=== PATIENT | male | born 1955 | race Caucasian/White ===

== ENCOUNTER 2019-04-24 23:53 | Inpatient (IN) | payer MEDICARE ==
[~2019-04-24] VITALS: Ht 180.3 cm; Wt 85.1 kg
[~2019-04-24 23:53] MED LIST: MECL25 PO
[2019-04-25 00:12] LABS: BASOPHILS ABSOLUTE AUTO 0.03 K/mm3 (0.00-0.23); BASOPHILS PERCENT AUTO 0 % (0-2); EOSINOPHILS ABSOLUTE AUTO 0.05 K/mm3 (0.00-0.68); EOSINOPHILS PERCENT AUTO 0 % (0-6); Hematocrit 46.8 % (37.0-53.0); IMMATURE GRAN ABSOLUTE AUTO 0.03 K/mm3 (0.00-0.10); IMMATURE GRAN PERCENT AUTO 0 % (0-1); LYMPHOCYTES ABSOLUTE AUTO 2.92 K/mm3 (0.84-5.20); LYMPHOCYTES PERCENT AUTO 22 % (21-46); MONOCYTES PERCENT AUTO 6 % (4-13); Mean Corpuscular HGB 27.5 pg (26.0-34.0); Mean Corpuscular HGB Conc 32.1 g/dL (31.5-36.5); Mean Corpuscular Volume 86 fL (80-100); Mean Platelet Volume 9.5 fL (9.1-12.4); NEUTROPHILS ABSOLUTE AUTO 9.24 K/mm3 (1.96-9.15); NEUTROPHILS PERCENT AUTO 71 % (41-73); Platelet Count 315 K/mm3 (150-400); RDW Coefficient Variation 14.2 % (11.7-14.2); RDW Standard Deviation 44.3 fL (35.1-46.3); Red Blood Cell Count 5.45 M/mm3 (4.30-5.90); White Blood Cell Count 13.07 K/mm3 (4.00-11.30)
[2019-04-25 00:19] LABS: PCO2 Arterial 43.2 mmHg (35-45); PO2 Arterial 70.3 mmHg (80-100); pH Blood Arterial 7.37 (7.35-7.45)
[2019-04-25 00:32] LABS: Alanine Aminotransfer (ALT/SGP 43 U/L (12-78); Albumin, Blood 3.8 g/dL (3.4-5.0); Alk Phos 103 U/L (50-136); Anion Gap 8 mmol/L (6-16); Aspartate Aminotrans (AST/SGOT 18 U/L (12-37); Bilirubin, Total 0.4 mg/dL (0.1-1.0); Blood Urea Nitrogen 26 mg/dL (8-24); Bun/Creatinine Ratio 22.4 (12.0-20.0); CO2, Blood 26 mmol/L (21-32); Calcium, Blood 8.9 mg/dL (8.5-10.1); Chloride, Blood 104 mmol/L (98-108); Creatinine, Blood 1.16 mg/dL (0.60-1.20); Ethanol (Alcohol), Blood, Med <3 mg/dL; Globulin, Blood 3.8 g/dL (2.2-4.0); Glomerular Filtration Rate >60 (60-); Glucose, Blood 277 mg/dL (70-99); Magnesium, Blood 2.2 mg/dL (1.6-2.4); Potassium, Blood 3.5 mmol/L (3.5-5.5); Sodium, Blood 138 mmol/L (136-145); Total Protein, Blood 7.6 g/dL (6.4-8.2); Troponin I <0.015 ng/mL (0.000-0.040)
[2019-04-25 03:00] LABS: International Normalized Ratio 1.03; Prothrombin Time Results 10.9 Sec (9.7-11.5)
[2019-04-25 03:34] LABS: Source, Urine Clean Catch
[2019-04-25 03:38] LABS: Bilirubin, Urine Neg (Neg); Blood, Urine Neg (Neg); Glucose Qualitative, Urine 3+ (Neg); Ketones, Urine Neg (Neg); Leukocyte Esterase, Urine 1+ (Neg); Nitrite, Urine Neg (Neg); Protein, Urine 2+ (Neg); Specific Gravity, Urine 1.025 (1.003-1.022); Urobilinogen, Urine NORM (Normal)
[2019-04-25 03:44] LABS: Appearance, Urine Clear (Clear); Color, Urine Amber (P-Yellow)
[2019-04-25 03:47] LABS: Bacteria Many /hpf; Hyaline Casts 50-100 /lpf (0-2); Mucus Light ({null, 0-Heavy}); Red Blood Cells, Urine 0-2 /hpf (0-2); Squamous Epithelial Cells Not Seen /hpf (Few)
[2019-04-25 03:55] LABS: U Amphetamine Screen DETECTED; U Barbituate Screen Not Detected; U Benzodiazapine Screen Not Detected; U Buprenorphine Screen Not Detected; U Cannabinoids Screen DETECTED; U Cocaine Screen Not Detected; U Methadone Screen Not Detected; U Methamphetamine Screen DETECTED; U Opiates Screen DETECTED; U Oxycodone Screen Not Detected; U Phencyclidine Screen Not Detected; U Propoxyphene Screen Not Detected
[2019-04-25 04:21] LABS: Hematocrit 47.8 % (37.0-53.0); Hemoglobin 15.2 g/dL (13.5-17.5); Mean Corpuscular HGB 27.7 pg (26.0-34.0); Mean Corpuscular HGB Conc 31.8 g/dL (31.5-36.5); Mean Corpuscular Volume 87 fL (80-100); Mean Platelet Volume 9.3 fL (9.1-12.4); Platelet Count 276 K/mm3 (150-400); RDW Coefficient Variation 14.1 % (11.7-14.2); RDW Standard Deviation 45.2 fL (35.1-46.3); Red Blood Cell Count 5.48 M/mm3 (4.30-5.90); White Blood Cell Count 12.16 K/mm3 (4.00-11.30)
[2019-04-25 04:39] LABS: Alanine Aminotransfer (ALT/SGP 39 U/L (12-78); Albumin, Blood 3.4 g/dL (3.4-5.0); Albumin/Globulin Ratio 0.9 (0.8-1.8); Alk Phos 96 U/L (50-136); Anion Gap 6 mmol/L (6-16); Aspartate Aminotrans (AST/SGOT 11 U/L (12-37); Bilirubin, Total 0.3 mg/dL (0.1-1.0); Blood Urea Nitrogen 22 mg/dL (8-24); Bun/Creatinine Ratio 24.3 (12.0-20.0); CO2, Blood 24 mmol/L (21-32); Calcium, Blood 8.2 mg/dL (8.5-10.1); Chloride, Blood 111 mmol/L (98-108); Creatinine, Blood 0.91 mg/dL (0.60-1.20); Globulin, Blood 3.6 g/dL (2.2-4.0); Glomerular Filtration Rate >60 (60-); Glucose, Blood 135 mg/dL (70-99); Potassium, Blood 3.7 mmol/L (3.5-5.5); Sodium, Blood 141 mmol/L (136-145)
--- NOTE | 2019-04-25 10:50 | NUR ---
ARRIVAL NOTE: PT ARRIVED VIA GURNEY AND TRANSFERRED OVER TO BED WITH SLIGHTLY UNSTEADY GAIT AND SBA. PT IS ALERT AND ORIENTED X3. PLEASANT AND COOPERATIVE WITH CARE. SPEECH IS CLEAR AND ANSWERS QUESTIONS APPROPRIATELY. MOVES SELF AROUND IN BED. PT IS UNKEMPT AND PERSONAL HYGEIGN IS POOR. PT DENIES ANY CURRENT ILLICIT DRUG USE, NO SI. PT DENIES PAIN AT THIS TIME. CALL LIGHT WITHIN REACH. LUNGS ARE CLEAR T/O BILATERALLY. 02 SATS ON 6L VIA OXYMIZER AT THIS TIME. HR DISTANT, REGULAR, ST-100-110'S RANGE. NO EDEMA. IV IN THE RT NECK AND LT UA, BOTH PATENT WITH NS @ 125ML/HR FOR 1 LITER. UE/LE'S COOL TO THE TOUCH WITH SOME DISCOLORATION TO THE LE'S R/T TO POOR CIRCULATION. ABD SOFT/FLAT/NON-TENDER TO PALPATION. BT'S ACTIVE X4 QAUDS. NO VOID YET. HOWEVER, ER REPORTS PT USED THE URINAL.
--- NOTE | 2019-04-25 11:15 | NUR ---
CALLED DR HAMMER AND INFORMED HER THIS PT HAS ARRIVED TO UNIT. ASKED ABOUT STARTING A DIET PT IS VERY HUNGRY/THIRSTY. DR HAMMER IS GOING TO REVIEW THE PT'S CASE AND ENTER ORDERS. NICOTINE PATCH ORDERED AT PT REPORTS HE SMOKES 5-7 CIG/DAY.
[2019-04-25 18:33] LABS: Adenovirus Not Detected (NOT DETECT); Bordetella pertussis Not Detected (NOT DETECT); Chlamydophila pneumoniae Not Detected (NOT DETECT); Coronavirus 229E Not Detected (NOT DETECT); Coronavirus HKU1 Not Detected (NOT DETECT); Coronavirus NL63 Not Detected (NOT DETECT); Coronavirus OC43 Not Detected (NOT DETECT); Human Metapneumovirus Not Detected (NOT DETECT); Human Rhinovirus/Enterovirus Not Detected (NOT DETECT); Influenza A Not Detected (NOT DETECT); Influenza A/2009-H1 Not Detected (NOT DETECT); Influenza A/H1 Not Detected (NOT DETECT); Influenza A/H3 Not Detected (NOT DETECT); Influenza B Not Detected (NOT DETECT); Mycoplasma pneumoniae Not Detected (NOT DETECT); Parainfluenza Virus 1 Not Detected (NOT DETECT); Parainfluenza Virus 2 Not Detected (NOT DETECT); Parainfluenza Virus 3 Not Detected (NOT DETECT); Parainfluenza Virus 4 Not Detected (NOT DETECT); Respiratory Syncytial Virus Not Detected (NOT DETECT)
--- NOTE | 2019-04-25 19:08 | NUR ---
SHIFT SUMMARY: PT ARRIVED THIS AM AND HAS REMAINED STABLE T/O SHIFT. PT IS ALERT AND ORIENTED X3. PLEASANT AND COOPERATIVE WITH CARE. DENIES PAIN T/O SHIFT. SPEECH IS CLEAR AND ANSWERS QUESTIONS APPROPRIATELY. USES CALL LIGHT APPROPRIATELY FOR HIS CARE NEEDS. LUNGS ARE CLEAR T/O BILATERALLY. 02 SATS >90% ON RA. HR DISTANT REGULAR, ST-100-110'S RANGE. NO EDEMA. IV IN THE RT NECK AND LT UA, SL'D UE/LE'S COOL TO THE TOUCH. ABD SOFT/FLAT/NON-TENDER TO PALPATION. BT'S ACTIVE X4 QAUDS. PT TOLERATING REGULAR DIET WELL. VOIDING PER URINAL INDEPENDENTLY. NO BM THIS SHIFT. .
--- NOTE | 2019-04-25 19:41 | NUR ---
REPORTED OFF TO ALICIA CRANDALL WHOM IS ASSUMING CARE OF THIS PT.
--- NOTE | 2019-04-25 21:58 | NUR ---
ASSUME CARE: REPORT RECIEVED FROM ARYAN OFFGOING RN. MONITOR INTACT SHOWING SINUS TACH . HEART RATE 100'S-110'S. DENIES DISCOMFORT. LUNGS CLEAR RESPIRATIONS REGULAR AND EASY SPO2 92-97% ON ROOM AIR. ABDOMEN SOFT WITH BOWELL SOUNDS FOUR QUADS. VOIDS VERENICE URINE PER URINAL , OCC NON PRODUCTIVE LOOSE SOUNDING COUGH. SPUTUM SAMPLE CUP IN ROOM AND EXPLAINED NEED FOR SAMPLE TO PT UNDERSTANDING VERBALIZED. CONTINUE TO MONITOR AND REPORT CHANGE IN PATIENT CONDITION.
--- NOTE | 2019-04-26 00:19 | NUR ---
O2 O2 PLACED PER OZIMIZER AT 3L/MIN SECONDARY TO DECREASING SATURATIONS. WILL CONTINUE TO MONITOR SPUTUM COLLECTION CUP AT BEDSIDE
--- NOTE | 2019-04-26 06:28 | NUR ---
SHIFT SUMMARY: RESTS QUIETLY WHEN UNDISTURBED. MONITOR INTACT SHOWING SINUS TACH. HEART RATE 90'S-110'S LUNG SOUNDS CLEAR WITH DECREASED BASES.RESPIRATIONS REGULAR AND EASY WITH O2 IN PLACE AT 2L/MIN. ABDOMEN SOFT WITH BOWEL SOUNDS FOUR QUADS. VOIDS VERENICE URINE PER URINAL. OCC LOOSE MOIST SOUNDING COUGH WITH SNEEZING EPISODES. COOPERATIVE TO CARES. CONTINUE TO MONITOR AND REPORT CHANGE IN PATIENT CONDITION.
--- NOTE | 2019-04-26 07:33 | NUR ---
O2 REQUIREMENTS Pt titrated to room air. SpO2 93%.
[2019-04-26 08:46] LABS: Hematocrit 40.1 % (37.0-53.0); Hemoglobin 13.1 g/dL (13.5-17.5); Mean Corpuscular HGB Conc 32.7 g/dL (31.5-36.5); Mean Corpuscular Volume 86 fL (80-100); Mean Platelet Volume 9.6 fL (9.1-12.4); Platelet Count 246 K/mm3 (150-400); RDW Coefficient Variation 14.8 % (11.7-14.2); RDW Standard Deviation 46.4 fL (35.1-46.3); Red Blood Cell Count 4.68 M/mm3 (4.30-5.90); White Blood Cell Count 21.92 K/mm3 (4.00-11.30)
[2019-04-26 09:07] LABS: Albumin, Blood 3.2 g/dL (3.4-5.0); Anion Gap 6 mmol/L (6-16); Blood Urea Nitrogen 20 mg/dL (8-24); Bun/Creatinine Ratio 26.8 (12.0-20.0); CO2, Blood 27 mmol/L (21-32); Calcium, Blood 9.9 mg/dL (8.5-10.1); Chloride, Blood 106 mmol/L (98-108); Creatinine, Blood 0.75 mg/dL (0.60-1.20); Glomerular Filtration Rate >60 (60-); Glucose, Blood 128 mg/dL (70-99); Phosphorus, Blood 2.6 mg/dL (2.5-4.9); Potassium, Blood 4.4 mmol/L (3.5-5.5); Sodium, Blood 139 mmol/L (136-145)
--- NOTE | 2019-04-26 18:40 | NUR ---
Per admit trigger, I met with Mr. Fernandez to offer information/education about Advanced Directives. He was pleasantly dismissive and told me his "knows what to do." I will remain available.
--- NOTE | 2019-04-26 19:30 | NUR ---
SUMMARY Assumed care of pt at 0700. Report received from April VARGAS. Pt titrated to room air. Tolerated well. Flutter valve placed at bedside and pt educated on use. Pt demonstrated correct use. Dr Egan in to see patient. Okay for medical floor status. Pt removed from heart monitor and continuous SpO2. Independent in room. Plans for pt to dishcarge tomorrow. Pt assigned to room 305. Telephone report given to Ameena VARGAS who is to assume care.
[2019-04-27 05:37] LABS: BASOPHILS ABSOLUTE AUTO 0.03 K/mm3 (0.00-0.23); BASOPHILS PERCENT AUTO 0 % (0-2); EOSINOPHILS PERCENT AUTO 0 % (0-6); Hematocrit 39.1 % (37.0-53.0); Hemoglobin 12.6 g/dL (13.5-17.5); IMMATURE GRAN ABSOLUTE AUTO 0.14 K/mm3 (0.00-0.10); IMMATURE GRAN PERCENT AUTO 1 % (0-1); LYMPHOCYTES ABSOLUTE AUTO 1.81 K/mm3 (0.84-5.20); LYMPHOCYTES PERCENT AUTO 9 % (21-46); MONOCYTES ABSOLUTE AUTO 1.07 K/mm3 (0.16-1.47); MONOCYTES PERCENT AUTO 5 % (4-13); Mean Corpuscular HGB 27.5 pg (26.0-34.0); Mean Corpuscular HGB Conc 32.2 g/dL (31.5-36.5); Mean Corpuscular Volume 85 fL (80-100); NEUTROPHILS ABSOLUTE AUTO 17.29 K/mm3 (1.96-9.15); NEUTROPHILS PERCENT AUTO 85 % (41-73); Platelet Count 246 K/mm3 (150-400); RDW Standard Deviation 46.5 fL (35.1-46.3); Red Blood Cell Count 4.59 M/mm3 (4.30-5.90); White Blood Cell Count 20.34 K/mm3 (4.00-11.30)
[2019-04-27 06:08] LABS: Anion Gap 5 mmol/L (6-16); Blood Urea Nitrogen 22 mg/dL (8-24); Bun/Creatinine Ratio 25.9 (12.0-20.0); CO2, Blood 27 mmol/L (21-32); Calcium, Blood 9.4 mg/dL (8.5-10.1); Chloride, Blood 108 mmol/L (98-108); Creatinine, Blood 0.85 mg/dL (0.60-1.20); Glomerular Filtration Rate >60 (60-); Glucose, Blood 113 mg/dL (70-99); Phosphorus, Blood 2.2 mg/dL (2.5-4.9); Potassium, Blood 4.2 mmol/L (3.5-5.5); Sodium, Blood 140 mmol/L (136-145)
--- NOTE | 2019-04-27 06:41 | NUR ---
SHIFT SUMMARY PT IS A 64 Y/O MALE, TRANSFERED TO MEDICAL FROM THE ICU DURING THE NIGHT. HE WAS ORIGINALLY ADMITTED FOR A HEROIN OVERDOSE. PT IS A&O X 4, AND INDEPENDENT IN THE ROOM. HE DENIED ANY COMPLAINTS OF PAIN, NAUSEA OR SOB AND SLEPT OFF AND ON THROUGH THE NIGHT. PT'S HEART RATE WAS ELEVATED IN 100-110S, VITALS OTHERWISE STABLE. NO ACUTE CHANGES IN PT CONDITION NOTED DURING THE NIGHT. WILL CONTINUE TO MONITOR AND TREAT PER EMAR UNTIL HAND OFF TO DAY SHIFT.
--- NOTE | 2019-04-27 16:39 | NUR ---
SHIFT SUMMARY: PT IS A/O X 3 WITH NO C/O PAIN THIS SHIFT. HE SELF AMBULATES IN ROOM AND TO THE TOILET WITH NO ISSUES. PT EATS ALL OF HIS MEALS AND CBGS HAVE BEEN WNL THIS SHIFT. IV FLUIDS/ABO INFUSING INTO PERIPHERAL LINE IN RUE AFTER LINE IN LUE WAS LEAKING AND REMOVED. PT HAS PERSISTANT NON-PRODUCTIVE COUGH THAT HE ATTRIBUTES TO HIS SMOKING, PT HAS NOT BEEN OUT TO SMOKE THIS SHIFT AND HAS NICOTINE PATCH IN PLACE ORDERED. PT IS VERY PLEASANT AND COOPERATIVE WITH CARE AND CALLS WHEN NEEDED.
[2019-04-28 05:19] LABS: BASOPHILS ABSOLUTE AUTO 0.02 K/mm3 (0.00-0.23); BASOPHILS PERCENT AUTO 0 % (0-2); EOSINOPHILS ABSOLUTE AUTO 0.12 K/mm3 (0.00-0.68); EOSINOPHILS PERCENT AUTO 1 % (0-6); Hematocrit 43.1 % (37.0-53.0); IMMATURE GRAN ABSOLUTE AUTO 0.05 K/mm3 (0.00-0.10); IMMATURE GRAN PERCENT AUTO 0 % (0-1); LYMPHOCYTES ABSOLUTE AUTO 2.73 K/mm3 (0.84-5.20); LYMPHOCYTES PERCENT AUTO 23 % (21-46); MONOCYTES ABSOLUTE AUTO 0.97 K/mm3 (0.16-1.47); MONOCYTES PERCENT AUTO 8 % (4-13); Mean Corpuscular HGB 27.7 pg (26.0-34.0); Mean Corpuscular HGB Conc 32.5 g/dL (31.5-36.5); Mean Corpuscular Volume 85 fL (80-100); Mean Platelet Volume 9.4 fL (9.1-12.4); NEUTROPHILS ABSOLUTE AUTO 7.97 K/mm3 (1.96-9.15); NEUTROPHILS PERCENT AUTO 67 % (41-73); Platelet Count 283 K/mm3 (150-400); Red Blood Cell Count 5.06 M/mm3 (4.30-5.90); White Blood Cell Count 11.86 K/mm3 (4.00-11.30)
[2019-04-28 05:34] LABS: Albumin, Blood 3.1 g/dL (3.4-5.0); Anion Gap 6 mmol/L (6-16); Blood Urea Nitrogen 15 mg/dL (8-24); Bun/Creatinine Ratio 16.7 (12.0-20.0); CO2, Blood 28 mmol/L (21-32); Calcium, Blood 9.3 mg/dL (8.5-10.1); Chloride, Blood 106 mmol/L (98-108); Glomerular Filtration Rate >60 (60-); Glucose, Blood 84 mg/dL (70-99); Phosphorus, Blood 4.3 mg/dL (2.5-4.9); Potassium, Blood 4.2 mmol/L (3.5-5.5); Sodium, Blood 140 mmol/L (136-145)
--- NOTE | 2019-04-28 05:41 | NUR ---
SHIFT SUMMARY: 64 Y/O MALE RESTED COMFORTABLY ALL SHIFT, COOPERATIVE WITH STAFF. PTS UP INDEPENDENTLY TO BATHROOM. PT DENIES PAIN, NAUSEA, TREMORS (NONE NOTED). PT STATED, "THIS WASN'T MY FIRST TIME USING STREET [facility]UGS, BUT AN OVERDOSE WAS NOT MY INTENTION". PTS LUNG SOUNDS ARE WHEEZING THROUGHOUT WITH SLIGHT DYSPNEA NOTED, WHICH RESOLVES WITH REST. PTS BED IN LOW POSITION, CALL LIGHT AT SIDE.
[2019-04-28] MEDS ORDERED: FLUTICASONE-SA1 EAC6 INH (11:41)
[2019-04-28] MEDS ORDERED: IBUP400 PO (11:43)
[2019-04-28] MEDS ORDERED: ALBU90OI INH (11:46)
[2019-04-28] MEDS ORDERED: AZIT500 PO (11:47)
[2019-04-28] MEDS ORDERED: Vsl#3 Capsule1 EACH PO (11:47)
[2019-04-28] MEDS ORDERED: Augmentin 875-1 EACH PO (11:47)
[2019-04-28] MEDS ORDERED: BENZ100A PO (11:48)
--- NOTE | 2019-04-28 13:17 | NUR ---
RECEIVED DC ORDERS FROM . REVIEWED ALL DC MEDICATIONS AND INSTRUCTIONS WITH PT WHO VERBALIZED AN UNDERSTANDING. RX'S FAXED TO [facility]. PT TRANSPORTED TO PERSONAL CAR WITH FAMILY FOR DC TO HOME. ALL BELONGINGS SENT WITH PT. PT STABLE AND THANKFUL FOR HIS STAY AND NURSING CARE AT [facility].
== END 2019-04-28 13:20 | disposition home or self-care (01) | DRG 871 ==
LOC: ER 23:53 → ERHOLD 23:54 → ICUW 04-25 09:28 → MEDS 04-26 19:38 → ICUW 04-26 19:56 → MEDS 04-27 06:04 → ENPENDDIS 04-28 11:13 → MEDS 04-28 13:20
PROVIDERS: Emergency Medicine; Internal Medicine; ADMIT Internal Medicine
DX: A41.9 Sepsis, unspecified organism (principal); G92 Toxic encephalopathy; J69.0 Pneumonitis due to inhalation of food and vomit; J96.01 Acute respiratory failure with hypoxia; R65.20 Severe sepsis without septic shock; E83.39 Other disorders of phosphorus metabolism; G43.909 Migraine, unspecified, not intractable, without status migrainosus; G44.89 Other headache syndrome; K70.30 Alcoholic cirrhosis of liver without ascites; T40.1X1A Poisoning by heroin, accidental (unintentional), initial encounter; R73.9 Hyperglycemia, unspecified; F19.10 Other psychoactive substance abuse, uncomplicated; F17.290 Nicotine dependence, other tobacco product, uncomplicated; E66.9 Obesity, unspecified; Z68.27 Body mass index [BMI] 27.0-27.9, adult
CPT/HCPCS: 36415; 36600; 71045; 80053; 80069; 81001; 82140; 82803; 82947; 83036; 83605; 83735; 83880; 84484; 85025; 85027; 85610; 87040; 87070; 87086; 87205; 87486; 87581; 87633; 87798; 93005; 93010; 94640; 94644; 94668; 94760; 96361; 96365; 96366; 96372-59; 96375; 96376; 99285-25; G0378; G0480; J0456; J1650; J2543; J2930; J3030; J7030; J7050; J7060

== ENCOUNTER 2023-12-11 19:29 | Emergency (ER) | payer MEDICARE ==
[~2023-12-11] VITALS: Ht 180.3 cm; Wt 106.6 kg
[2023-12-11 19:29] VITALS: BP 143/84
[~2023-12-11 19:29] MED LIST changes: +ALBU90OI INH; +AZIT500 PO; +Augmentin 875-1 EACH PO; +BENZ100A PO; +FLUTICASONE-SA1 EAC6 INH; +IBUP400 PO; +Vsl#3 Capsule1 EACH PO
[2023-12-11] MEDS ORDERED: LOSA50 PO (19:45)
[2023-12-11] MEDS ORDERED: FentaNYL Citrate 50 MCG/ML 2 ML Injection IV ONE ×2 (19:45→21:10)
[2023-12-11] MEDS ORDERED: Tetanus and Diphtheria Toxoid 0.5 ML INJ IM ONE (19:45)
[2023-12-11] MEDS ORDERED: METFORMIN HCL500 M2 PO (19:46)
[2023-12-11] MEDS ORDERED: COMBIVENT RESPIM4 G1 INH (19:46)
[2023-12-11] MEDS ORDERED: Bacitracin Zinc Oint 1GRAM UD Packet TOP ONE (19:50)
[2023-12-11] MEDS ORDERED: Lactated Ringer's 1,000 ML IV SCH (19:50)
[2023-12-11 20:00] LABS: BASOPHILS ABSOLUTE AUTO 0.04 K/mm3 (0.00-0.23); BASOPHILS PERCENT AUTO 1 % (0-2); EOSINOPHILS ABSOLUTE AUTO 0.11 K/mm3 (0.00-0.68); EOSINOPHILS PERCENT AUTO 1 % (0-6); Hemoglobin 14.1 g/dL (13.5-17.5); IMMATURE GRAN ABSOLUTE AUTO 0.03 K/mm3 (0.00-0.10); IMMATURE GRAN PERCENT AUTO 0 % (0-1); LYMPHOCYTES ABSOLUTE AUTO 1.86 K/mm3 (0.84-5.20); LYMPHOCYTES PERCENT AUTO 22 % (21-46); MONOCYTES ABSOLUTE AUTO 0.66 K/mm3 (0.16-1.47); MONOCYTES PERCENT AUTO 8 % (4-13); Mean Corpuscular HGB 26.1 pg (26.0-34.0); Mean Corpuscular HGB Conc 31.3 g/dL (31.5-36.5); Mean Corpuscular Volume 83 fL (80-100); Mean Platelet Volume 9.2 fL (9.1-12.4); NEUTROPHILS ABSOLUTE AUTO 5.96 K/mm3 (1.96-9.15); NEUTROPHILS PERCENT AUTO 69 % (41-73); Platelet Count 274 K/mm3 (150-400); RDW Coefficient Variation 15.4 % (11.7-14.2); RDW Standard Deviation 45.9 fL (35.1-46.3); Red Blood Cell Count 5.41 M/mm3 (4.30-5.90); White Blood Cell Count 8.66 K/mm3 (4.00-11.30)
[2023-12-11 20:36] LABS: Alanine Aminotransfer (ALT/SGP 43 U/L (12-78); Albumin, Blood 3.3 g/dL (3.4-5.0); Albumin/Globulin Ratio 0.8 (0.8-1.8); Alk Phos 88 U/L (50-136); Anion Gap Unable to Calculate mmol/L (6-16); Aspartate Aminotrans (AST/SGOT 30 U/L (12-37); Bilirubin, Total 0.3 mg/dL (0.1-1.0); Blood Urea Nitrogen 24 mg/dL (8-24); Bun/Creatinine Ratio 25.6 (12.0-20.0); CO2, Blood 34 mmol/L (21-32); Calcium, Blood 9.6 mg/dL (8.5-10.1); Chloride, Blood 108 mmol/L (98-108); Creatinine, Blood 0.94 mg/dL (0.60-1.20); Globulin, Blood 4.3 g/dL (2.2-4.0); Glomerular Filtration Rate 89 (60-); Glucose, Blood 147 mg/dL (70-99); Potassium, Blood 4.7 mmol/L (3.5-5.5); Sodium, Blood 139 mmol/L (136-145); Total Protein, Blood 7.6 g/dL (6.4-8.2)
[2023-12-11] MEDS ORDERED: HYDROmorphone HCl/Pf 1MG SYR IV ONE ×2 (21:15→21:40)
[2023-12-11] MEDS ORDERED: Silver Sulfadiazine 1% Cream 25 APPLIC/25 GM Tube TOP ONE (21:40)
[2023-12-11] MEDS ORDERED: RX Prepack 6 Tabs Oxycodone 5mg UD ONE (22:45)
[2023-12-11] MEDS ORDERED: OXAYDO5 M1 PO (22:45)
[2023-12-11] MEDS ORDERED: Ketorolac Tromethamine 30mg Vial IV ONE (22:50)
== END 2023-12-11 23:02 | disposition home or self-care (01) ==
LOC: ER 19:29
PROVIDERS: Student in an Organized Health Care Education/Training Program
DX: T22.212A Burn of second degree of left forearm, initial encounter (principal); T23.251A Burn of second degree of right palm, initial encounter; T23.262A Burn of second degree of back of left hand, initial encounter; T25.212A Burn of second degree of left ankle, initial encounter; T31.0 Burns involving less than 10% of body surface; Z79.84 Long term (current) use of oral hypoglycemic drugs; Z79.899 Other long term (current) drug therapy; X04.XXXA Exposure to ignition of highly flammable material, initial encounter
CPT/HCPCS: 16025; 80053; 85025; 90471; 90714; 93005; 93010; 96361-59; 96374-59; 96375-59; 99284-25; A9270; J1170; J3010; J7120